=== PATIENT | female | born 1955 | race African-American/Black ===

== ENCOUNTER 2017-04-03 06:20 | Emergency (ER) | payer MEDICAID ==
[~2017-04-03] VITALS: Ht 157.5 cm; Wt 92.0 kg
[~2017-04-03 06:20] MED LIST: ASCO500C6 PO; ASPI-1159 PO; CHOL500010 PO; MULT-1146 PO
[2017-04-03] MEDS ORDERED: KETOROLAC 60MG/2ML VIAL IM ONE (07:15)
[2017-04-03] MEDS ORDERED: KETOROLAC 30MG/ML VIAL IM ONE (07:30)
[2017-04-03 10:20] VITALS: BP 139/76
== END 2017-04-03 10:40 | disposition home or self-care (01) ==
LOC: ER 06:20
DX: M25.561 Pain in right knee (principal); I83.91 Asymptomatic varicose veins of right lower extremity; I10 Essential (primary) hypertension; Z88.2 Allergy status to sulfonamides; Z79.82 Long term (current) use of aspirin; Z90.49 Acquired absence of other specified parts of digestive tract; Z90.710 Acquired absence of both cervix and uterus
CPT/HCPCS: 93971; 96372; 99284; J1885

== ENCOUNTER 2017-10-20 22:29 | Emergency (ER) | payer MEDICAID ==
[~2017-10-20] VITALS: Ht 160 cm; Wt 91.0 kg
[2017-10-21] MEDS ORDERED: HYDROCODONE/ACETAMINOPHEN 5/325MG TABLET PO STA (05:28)
[2017-10-21] MEDS ORDERED: SODIUM CHLORIDE 0.9% 1,000 ML IV ONE (06:04)
[2017-10-21 06:51] LABS: BASOPHILS % 0.5 % (0.0-2.0); EOSINOPHILS % 0.1 % (0.0-5.0); HEMATOCRIT. 34.2 % (36.0-48.0); HEMOGLOBIN. 11.5 g/dL (12.0-16.0); LYMPHOCYTES % 14.7 % (20.0-50.0); MEAN CORPUSCULAR HEMOGLOBIN 28.8 pg (28.0-32.0); MEAN CORPUSCULAR VOLUME 85.6 fL (81.0-99.0); MEAN PLATELET VOLUME 10.1 fl (7.4-10.4); MONOCYTES % 12.3 % (2.0-8.0); NEUTROPHILS % 72.4 % (40.0-76.0); PLATELET 112 x1000/uL (130-400); RED CELL DISTRIBUTION WIDTH 13.9 % (11.6-14.6)
[2017-10-21 06:55] LABS: INR 1.1; PROTHROMBIN TIME 11.3 sec (9.4-11.6)
[2017-10-21] MEDS ORDERED: OSELTAMIVIR 75MG CAPSULE PO ONE (07:45)
[2017-10-21 08:18] LABS: CHLORIDE 102 mEq/L (98-107)
[2017-10-21] MEDS ORDERED: OSELTAMIVIR 75MG CAPSULE PO SCH (08:45)
[2017-10-21 09:11] LABS: CLARITY URINE CLEAR (CLEAR); COLOR URINE YELLOW (YELLOW); KETONES URINE NEGATIVE (NEGATIVE); LEUKOCYTE ESTERASE URINE NEGATIVE (NEGATIVE); NITRITE URINE NEGATIVE (NEGATIVE); OCCULT BLOOD URINE NEGATIVE (NEGATIVE); PROTEIN URINE NEGATIVE (NEGATIVE); SPECIFIC GRAVITY URINE 1.017 (1.005-1.030); UROBILINOGEN URINE 0.2 E.U./dL (0.2-1.0)
[2017-10-21 10:30] VITALS: BP 162/89
== END 2017-10-21 10:54 | disposition home or self-care (01) ==
LOC: ER 10-21 01:40
DX: J10.1 Influenza due to other identified influenza virus with other respiratory manifestations (principal); N39.0 Urinary tract infection, site not specified; M79.672 Pain in left foot; I10 Essential (primary) hypertension; D64.9 Anemia, unspecified; E83.51 Hypocalcemia; R73.9 Hyperglycemia, unspecified; Z90.49 Acquired absence of other specified parts of digestive tract; Z90.710 Acquired absence of both cervix and uterus; Z88.0 Allergy status to penicillin; Z79.82 Long term (current) use of aspirin; Z88.2 Allergy status to sulfonamides
CPT/HCPCS: 36415; 71045; 80048; 81003; 84484; 85025; 85610; 87086; 87804; 93005; 93971; 96360; 96361; 99285; J7030; Z7610